=== PATIENT | female | born 2005 | race Asian ===

== ENCOUNTER 2024-08-23 22:54 | Inpatient (IN) ==
--- NOTE | 2024-08-23 23:15 | Emergency Department Note ---
Impression & Plan Suicidal ideation, Depression ED Provider Note NAME: DILLON FLORES AGE: 19 SEX: F : 2005 ARRIVES VIA: Walk-In INFORMANT: Patient ED PROVIDER(S): Guero Luna MD CHIEF COMPLAINT: Depression, suicidal ideation PLAN: Disposition: 3S MEDICAL DECISION MAKING: The patient is a 19-year-old woman with past medical history of anxiety and depression, student at [employer], who presents to the emergency department via walk-in for evaluation of depression and hopelessness that she reports has been ongoing for several years and progressively worsening. She reports having thoughts of wanting to kill her self and has considered plans of overdosing on medications, cutting herself, walking into traffic. She denies any recent attempts to hurt herself. She has any recent illness. She denies any drug or alcohol use. She reports she ran out of her sertraline and only recently had it refilled. On evaluation accompanied by case management, the patient is tearful but in No acute distress, afebrile with heart in the 140s and blood pressure 150/100s in the setting of her tearfulness and vital signs are otherwise stable. Heart rate did improve following 0.25 mg of oral Ativan. EKG was unremarkable without overt acute ischemia. No Brugada. WBC 11.5 K with neutrophilia but no left shift, nonspecific. H/H within normal limits. Platelets within normal limits. Chemistry without metabolic acidosis. Electrolytes and LFTs unremarkable. TSH within limits. hCG negative. UA demonstrates evidence of contamination with bacteria present though patient denies urinary symptoms. Yeast is present and patient does report symptoms of yeast infection and so fluconazole administered. The patient was medically cleared. Appreciate case management assistance/consultation. The patient does agree to voluntary inpatient admission for mental health treatment. 201 signed. Patient accepted to 3S. Triage Nursing notes reviewed and agree them. Prior/external medical records reviewed Vital Signs: reviewed Differential diagnosis: Mood disorder, infection, hypoglycemia, electrolyte abnormalities, cardiac sources, intracerebral event, toxicologic, trauma, neurologic, as well as other pathologies. ER treatment provided: See below. Diagnostics interpreted by me: ECG: Normal sinus rhythm, 77 bpm, no ectopy, no overt ST ovation or depression, no Brugada, QTc 418, QRS 74. Laboratory studies: See below Imaging studies: See below Consultation(s): Case management. HPI: Per MDM. ROS: See above HPI for pertinent positives & negatives. A total of 10 systems reviewed and were otherwise negative. VITALS:See Below PHYSICAL EXAMINATION: GENERAL: Awake, alert, tearful, anxious-appearing, in no distress HENT: Normocephalic, atraumatic. Oropharynx unremarkable. EYES: Normal conjunctiva. Sclera non-icteric. NECK: Supple. No nuchal rigidity. FROM. No JVD. RESPIRATORY: Clear to auscultation. CARDIAC: Regular rate, normal rhythm. Extremities warm and well perfused. Pulses equal. ABDOMEN: Soft, non-distended. No tenderness to palpation. No rebound or guarding. No masses. MUSCULOSKELETAL: Chest examination reveals no tenderness. The back is symmetrical on inspection without obvious abnormality. There is no CVA tenderness to palpation. No joint edema. LOWER EXTREMITIES: Calves are equal size bilaterally and non-tender. No edema. No discoloration. NEURO: Normal sensorium. No sensory or motor deficits noted. SKIN: No rash or jaundice noted. PSYCH: Reports suicidal ideation, reports plan. Reports depression and hopelessness. Guero Luna MD Past Med/Surg History Problem List (Updated 08/24/24 @ 05:15 by Guero Luna MD) Depression (Acute) Suicidal ideation (Acute) Encounter for pre-operative examination Acute appendicitis (Acute) Medical History Anxiety and depression Surgical History History of laparoscopic appendectomy (06/11/20) Laparoscopic Appendectomy Dr. Simmons 06/11/2020 Social History Smoking Status: Never smoker Preferred Language: Mohawk Feels Safe at Home: Yes Gender Identity: Female Allergies Allergies Allergy/AdvReac Type Severity Reaction Status Date / Time No Known Allergies Allergy Verified 08/31/20 21:16 Home Meds Home Medications Medication Instructions Recorded Confirmed buspirone 10 mg tablet 10 mg BID PRN Anxiety 08/23/24 08/23/24 sertraline 50 mg tablet 50 mg DAILY 08/23/24 08/23/24 Previous Rx's Medication Instructions Recorded acetaminophen 325 mg capsule 650 mg (2 x 325 mg) PO Q6H PRN 06/11/20 fever or pain #30 caps ibuprofen 200 mg capsule 400 mg (2 x 200 mg) PO Q8H PRN 06/11/20 pain #30 caps Results & Data (ED) Vital Signs Vital Signs - 24 hr 08/23/24 22:56 08/24/24 00:54 08/24/24 04:52 Temperature 37.1 C Temperature Source Temporal Artery Scan Pulse Rate 147 H Pulse Rate [Finger] 74 Pulse Rhythm [Finger] Regular Pulse Strength [Finger] Normal Respiratory Rate 19 16 Respiratory Effort / Characteristics Non-Labored Spontaneous Non-Labored Spontaneous Respiratory Depth Normal Normal Respiratory Pattern Regular Blood Pressure 153/104 H Blood Pressure [Left Arm] 103/66 Blood Pressure Mean 120 Blood Pressure Mean [Left Arm] 78 Blood Pressure Position [Left Arm] Lying Pulse Oximetry 98 99 Oxygen Delivery Method Room Air Room Air Room Air Sepsis Recent Fever Within 48 Hours No Sepsis New/Unexplained Change in Mental Status N/A Sepsis Action Taken by Nursing No Action Required Laboratory Data Attestation: I reviewed the patient's lab results. 08/23/24 23:14 08/23/24 23:14 Lab Results 08/23/24 Range/Units 23:14 WBC 11.55 H (4.8-10.8) K/ul RBC 5.50 H (4.20-5.40) M/uL Hgb 13.0 (12.0-16.0) g/dl Hct 40.6 (37.0-47.0) % MCV 73.8 L (80.0-100.0) fL MCH 23.6 L (25.0-34.0) pg MCHC 32.0 (32.0-36.0) g/dL RDW Std Deviation 37.3 (36.4-46.3) fL RDW Coeff of Ulices 14.1 (11.5-14.5) % Plt Count 334 (130-400) K/uL MPV 10.3 (9.4-12.4) fL Immature Gran % (Auto) 0.4 % Neut % (Auto) 82.0 % Lymph % (Auto) 14.3 % [place] % (Auto) 3.1 % Eos % (Auto) 0.0 % Baso % (Auto) 0.2 % Neut # (Auto) 9.47 H (1.40-6.50) K/uL Lymph # (Auto) 1.65 (1.20-3.40) K/uL [place] # (Auto) 0.36 (0.11-0.59) K/uL Eos # (Auto) 0.00 (0.00-0.50) K/uL Baso # (Auto) 0.02 (0.00-0.20) K/uL Immature Gran # (Auto) 0.05 (0.01-0.20) K/uL Sodium 138 (136-145) mmol/L Potassium 3.9 (3.5-5.1) mmol/L Chloride 106 (98-107) mmol/L Carbon Dioxide 21 (21-32) mmol/L Anion Gap 11 (3-11) BUN 10 (6-23) mg/dl Creatinine 0.90 (0.6-1.2) mg/dl Est Cr Clr Drug Dosing Not Reportable eGFR 93.28 BUN/Creatinine Ratio 11.1 (10-20) Glucose 111 H (70-99(Fasting)) mg/dl Calcium 9.3 (8.6-10.3) mg/dl Total Bilirubin 0.4 (0.2-1.0) mg/dl AST 15 (13-39) U/L ALT 14 (7-52) U/L Alkaline Phosphatase 64 (34-104) U/L Total Protein 7.7 (6.0-8.3) gm/dl Albumin 4.4 (3.4-5.0) gm/dl Globulin 3.3 (2.5-4.0) gm/dl Albumin/Globulin Ratio 1.3 (0.9-2) TSH 2.407 (0.300-4.500) uIu/ml HCG, Qual Negative (Negative) Urine Color Yellow Urine Appearance Clear (Clear) Urine pH 5.5 (4.5-7.5) Ur Specific [place] 1.015 (1.000-1.030) Urine Protein Negative (Negative) Urine Glucose (UA) Negative (Negative) Urine Ketones Negative (Negative) Urine Blood Negative (Negative) Urine Nitrite Negative (Negative) Urine Bilirubin Negative (Negative) Urine Urobilinogen Negative (Negative) Ur Leukocyte Esterase 3+ H (Negative) Urine WBC (Auto) 11-20 H (0-5) /hpf Urine RBC (Auto) 0-2 (0-2) /hpf U Hyaline Cast (Auto) 0-2 (0-2) /lpf U Epithel Cells (Auto) 3-5 H (0-2) /hpf Urine Bacteria (Auto) 2+ H (None Seen) Talc Crystals Present H (None Prsent) Urine Yeast Present A (None Prsent) Urine Comment Salicylates < 3.0 L (3.0-30) mg/dl Urine Opiates Screen Neg (Neg) Ur Methadone, Qual Neg (Neg) Urine Fentanyl Screen Neg (Neg) Acetaminophen < 3 L (10-30) ug/ml Urine Barbiturates Neg (Neg) Ur Phencyclidine (PCP) Neg (Neg) U Amphetamin/Meth Scrn Neg (Neg) MDMA (Ecstasy) Screen Neg (Neg) U Benzodiazepines Scrn Neg (Neg) Ur Cocaine Metabolite Neg (Neg) U Marijuana (THC) Screen Neg (Neg) Ethyl Alcohol mg/dL < 10.0 (<10.0) mg/dl SARS-CoV-2, RNA, NAAT NEGATIVE (NEGATIVE) Administered Medications Discontinued Medications Fluconazole (Fluconazole 50 Mg Tab) 150 mg PO NOW ONE Stop: 08/24/24 03:34 Last Admin: 08/24/24 03:39 Dose: 150 mg Documented By: RUSSEL Lorazepam (Lorazepam 0.5 Mg Tab) 0.25 mg PO NOW STA Stop: 08/23/24 23:25 Last Admin: 08/23/24 23:37 Dose: 0.25 mg Documented By: DAY Discharge Plan Visit Data Chief Complaint: Mental Health Evaluation Stated Complaint: [facility] ED Provider: Guero Luna Discharge Problem: Suicidal ideation, Depression Patient Disposition: Admitted As Inpatient Condition: Fair Discharge Instructions Interventions: ED Discharge Assessment Last Done: 08/24/24 04:52 Discharge Problem: Depression Qualifiers: Depression Type: unspecified Qualified Code(s): F32.A - Depression, unspecified
[2024-08-23 23:26] LABS: Basophils # (auto) 0.02 K/uL (0.00-0.20); Basophils % (auto) 0.2 %; Hematocrit (blood only) 40.6 % (37.0-47.0); Immature Granulocytes # (auto) 0.05 K/uL (0.01-0.20); Immature Granulocytes % (auto) 0.4 %; Lymphocytes # (auto) 1.65 K/uL (1.20-3.40); Lymphocytes % (auto) 14.3 %; Mean Corpuscular Hemoglobin 23.6 pg (25.0-34.0); Mean Corpuscular Volume 73.8 fL (80.0-100.0); Mean Platelet Volume 10.3 fL (9.4-12.4); Monocytes # (auto) 0.36 K/uL (0.11-0.59); Monocytes % (auto) 3.1 %; Neutrophils # (auto) 9.47 K/uL (1.40-6.50); Platelet Count 334 K/uL (130-400); RDW Coefficient of Variation 14.1 % (11.5-14.5); RDW Standard Deviation 37.3 fL (36.4-46.3); White Blood Count 11.55 K/ul (4.8-10.8)
[2024-08-23] MEDS: LORazepam 0.5 MG TAB PO STA (23:37)
[2024-08-23 23:40] LABS: Albumin Level 4.4 gm/dl (3.4-5.0); Anion Gap 11 (3-11); Bilirubin,Total 0.4 mg/dl (0.2-1.0); Calcium 9.3 mg/dl (8.6-10.3); Carbon Dioxide 21 mmol/L (21-32); Chloride 106 mmol/L (98-107); Potassium 3.9 mmol/L (3.5-5.1); Sodium 138 mmol/L (136-145)
[2024-08-23 23:44] LABS: Appearance Urine Clear (Clear); Bacteria Urine Automated 2+ (None Seen); Bilirubin Urine Negative (Negative); Blood Urine Negative (Negative); Cast Urine Automated 0-2 /lpf (0-2); Color Urine Yellow; Glucose Urine UA Negative (Negative); Ketones Urine Negative (Negative); Leukocyte Esterase Urine 3+ (Negative); Nitrite Urine Negative (Negative); Protein Urine Negative (Negative); RBC Urine Automated 0-2 /hpf (0-2); Specific Gravity Urine 1.015 (1.000-1.030); Urobilinogen Urine Negative (Negative); pH Urine 5.5 (4.5-7.5)
[2024-08-23 23:45] LABS: Acetaminophen < 3 ug/ml (10-30); Pregnancy Test, Serum Negative (Negative); Salicylate < 3.0 mg/dl (3.0-30)
[2024-08-23 23:46] LABS: Alanine Aminotransferase 14 U/L (7-52); Albumin Globulin Ratio 1.3 (0.9-2); Alkaline Phosphatase 64 U/L (34-104); Aspartate Aminotransferase 15 U/L (13-39); BUN Creatinine Ratio 11.1 (10-20); Blood Urea Nitrogen 10 mg/dl (6-23); Globulin 3.3 gm/dl (2.5-4.0); Glucose 111 mg/dl (70-99(Fasting)); Total Protein 7.7 gm/dl (6.0-8.3)
[2024-08-23 23:56] LABS: Amphetamines+Metham, Urine Neg (Neg); Barbiturates, Urine Neg (Neg); Benzodiazepine, Urine Neg (Neg); Cocaine, Urine Neg (Neg); Fentanyl, Urine Neg (Neg); MDMA (Ecstacy), Urine Neg (Neg); Marijuana, Urine Neg (Neg); Methadone, Urine Neg (Neg); Opiate, Urine Neg (Neg); Phencyclidine, Urine Neg (Neg)
[2024-08-24 00:03] LABS: Starch Talc Urine Present (None Prsent)
[2024-08-24 00:08] LABS: Thyroid Stimulating Hormone 2.407 uIu/ml (0.300-4.500)
[2024-08-24] MEDS: FLUCONAZOLE 50 MG TAB PO ONE (03:39)
[2024-08-24] MEDS ORDERED: ACETAMINOPHEN 325 MG TAB PO PRN (05:04)
[2024-08-24] MEDS ORDERED: SODIUM CHLORIDE 0.65% NA SOLN 45 ML (OCEAN) PRN (05:04)
[2024-08-24] MEDS ORDERED: BISMUTH SUBSALICYLATE 262 MG CHEW PO PRN (05:04)
[2024-08-24] MEDS ORDERED: MAGNESIUM HYDROXIDE SUSP 30 ML UDC PO PRN (05:04)
[2024-08-24] MEDS ORDERED: hydrOXYzine HCl 25 MG TAB PO PRN (05:04)
[2024-08-24] MEDS ORDERED: ALUMINUM/MAGNESIUM SUSP 30 ML UDC PO PRN (05:04)
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
[2024-08-24] MEDS: hydrOXYzine HCl 25 MG TAB PO PRN (09:53)
[2024-08-25] MEDS: VENLAFAXINE HCL XR 37.5 MG CAPXR PO SCH (08:52)
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
--- NOTE | 2024-08-25 16:01 | Electrocardiogram Report ---
Test Reason : Blood Pressure : */* mmHG Vent. Rate : 77 BPM Atrial Rate : 77 BPM P-R Int : 154 ms QRS Dur : 74 ms QT Int : 370 ms P-R-T Axes : 53 85 64 degrees QTcB Int : 418 ms Normal sinus rhythm Normal ECG No previous ECGs available Confirmed by Delfino Puga ([id number]) on 08/25/2024 4:00:38 PM Referred By: REFERRED SELF Confirmed By: Delfino Puga
[2024-08-25] MEDS: cloNIDine HCL 0.1 MG TAB PO SCH (21:30)
[2024-08-26] MEDS: VENLAFAXINE HCL XR 75 MG CAPXR PO SCH (08:27)
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
== END 2024-08-27 18:25 | disposition home or self-care (01) | DRG 885 ==
LOC: ED 22:54 → 3S 08-24 04:52